=== PATIENT | female | born 1965 | race Caucasian/White ===

== ENCOUNTER → 2019-11-12 | Day surgery (SDC) | payer MEDICARE ==
[2019-11-12 08:46] VITALS: RESP 16
[2019-11-12 10:18] VITALS: BP 119/81; PULSE 78; TEMP 97.7
--- NOTE | 2019-11-12 11:12 | USB ---
EXAMINATION TYPE: US biopsy breast VAD LT DATE OF EXAM: 11/12/2019 CLINICAL HISTORY: N60.92 Left breast nodule. TECHNIQUE: Ultrasound guided core biopsy of left breast. COMPARISON: Outside left breast ultrasound dated 09/24/2019 FINDINGS: The procedure of ultrasound guided core biopsy was explained to the patient. Benefits, alt ernatives, and risks were discussed. An informed consent was then obtained. Preprocedural timeout w as performed. The patient was placed in supine positioning for imaging and for the procedure. The overlying skin w as prepped and draped in usual sterile fashion. 10 cc of 1% lidocaine was used as anesthetic into the skin and subcutaneous tissue up to a 0.9 cm mass at the 4:00 position in the left breast. Under ultrasound guidance, a 12-gauge vacuum assisted biopsy gun device was used to obtain 5 [address]es. Following this, a coil-shaped biopsy marker was left in the mass. Postprocedure mammogram was not performed secondary to the COVID pandemic. This was discussed with the patient. If positive path ology, left breast diagnostic mammogram would be necessary prior to surgical intervention and needle localization. The patient tolerated the procedure well without any immediate complication. The patient was kept in the radiology department for short stay after the procedure and then discharged home in stable condi tion. IMPRESSION: 1. Successful, uncomplicated ultrasound guided core biopsy of a 0.9 cm mass at the 4:00 position in t he left breast, full pathology results to follow. 2. On the outside provided imaging 2 additional left breast masses were discussed as BI-RADS 3, proba ble fibroadenomas and six-month follow-up left breast ultrasound is again recommended pending patholo gi results of the performed biopsy.
== END ==
LOC: RADUSWWP 08:20
PROVIDERS: ATTEND Obstetrics & Gynecology Obstetrics
DX: D24.2 Benign neoplasm of left breast (principal)
CPT/HCPCS: 19083; A4648; J2001; 88305

== ENCOUNTER 2021-05-21 12:50 | Day surgery (SDC) | payer MEDICARE ==
[2021-05-18 13:06] VITALS: BMI 29.5
[~2021-05-21 12:50] MED LIST: DEXAMETHASONE SOD PHOSPHATE 4 MG/ML 1 ML VIAL IV ONE; HYDROmorphone 0.5 MG/0.5 ML SYRINGE IVP PRN; LACTATED RINGERS 1,000 ML IV SCH; LIDOCAINE 1% (10MG/ML) FOR IV START INTRADERMA PRN; ONDANSETRON 4 MG/2 ML VIAL IVP ONE; SCOPOLAMINE 1.5MG/72HR PATCH TRANSDERM ONE
--- NOTE | 2021-05-21 13:33 | XR ---
EXAMINATION TYPE: XR KUB DATE OF EXAM: 05/21/2021 COMPARISON: None INDICATION: Kidney stones TECHNIQUE: Single view abdomen supine view FINDINGS: There is a normal bowel gas pattern. Fecal debris is through the colon Psoas margins are normal. No organomegaly is present. 0.4 cm calcification overlying the left L3 transverse process. Suspicious calcifications are otherwis e evident. IMPRESSION: 1. There may be a left proximal ureteral stone. Correlate with the patient's symptoms
--- NOTE | 2021-05-21 13:39 | P.HPIHPCON ---
History of Present Illness Chief Complaint: Left-sided ureteral stone This is a 56-year-old female with history of a 6 mm left-sided proximal ureteral stone, she symptomatic from her stone. Discussed with her the option of ESWL versus ureteroscopy. Discussed the risk and the benefit of each approach. She agreed to proceed with left-sided ureteroscopy with holmium laser. Discussed the risk which includes but not limited to bleeding, infection, injury to the ureter. She understood all the risk and agreed to proceed Consent for Procedure: I have explained the operation/procedure to the patient, including the risks, benefits, side effects, alternative therapies (including not receiving the proposed treatment or service), the likelihood of the patient achieving his/her goals, and potential recuperation problems for the procedure/sedation/analgesia, as well as any blood products, if indicated. I also explained to the patient the risks, benefits and side effects of the alternatives, as well as the risks related to not receiving the proposed procedure, care, treatment, or services. Past Medical History Past Medical History: Hypertension Additional Past Medical History / Comment(s): KIDNEY STONES History of Any Multi-Drug Resistant Organisms: None Reported Past Surgical History: Appendectomy, Back Surgery, Breast Surgery, Hysterectomy, Tonsillectomy Additional Past Surgical History / Comment(s): right breast excisional bx., left breast needle bx. Past Anesthesia/Blood Transfusion Reactions: No Reported Reaction Past Psychological History: No Psychological Hx Reported Smoking Status: Never smoker Past Alcohol Use History: None Reported Past Drug Use History: None Reported - Past Family History Mother Family Medical History: Deep Vein Thrombosis (DVT) Medications and Allergies Home Medications Medication Instructions Recorded Confirmed Type Ascorbic Acid [Vitamin C] 1,000 mg PO DAILY 10/30/19 05/18/21 History Celecoxib [CeleBREX] 200 mg PO DAILY 10/30/19 05/18/21 History DULoxetine HCL [Cymbalta] 60 mg PO BID 10/30/19 05/18/21 History Gabapentin 800 mg PO QID 10/30/19 05/18/21 History Multivitamins, Thera [Multivitamin 1 tab PO DAILY 10/30/19 05/18/21 History (formulary)] Cholecalciferol [Vitamin D3 (25 25 mcg PO DAILY 05/18/21 05/18/21 History Mcg = 1000 Iu)] Metoprolol Succinate (ER) [Toprol 25 mg PO DAILY 05/18/21 05/18/21 History Xl] Tamsulosin [Flomax] 0.4 mg PO HS 05/18/21 05/18/21 History Allergies Allergy/AdvReac Type Severity Reaction Status Date / Time No Known Allergies Allergy Verified 05/18/21 12:55 Surgical - Exam Vital Signs Temp Pulse Resp BP Pulse Ox 98 F 81 20 160/74 99 05/21/21 13:26 05/21/21 13:26 05/21/21 13:26 05/21/21 13:26 05/21/21 13:26 - General no distress, no pain - Eyes PERRL, normal ocular movement - ENT normal nares, normal mucosa - Respiratory normal expansion, normal respiratory effort - Abdomen Abdomen: soft, non tender Assessment and Plan Assessment: 56-year-old female history of left-sided ureteral stone -Or for left-sided ureteroscopy, with holmium laser lithotripsy, stone basketing and stent insertion
[2021-05-21] MEDS ORDERED: MIDAZOLAM 2 MG/2 ML VIAL IV ONE (14:07)
[2021-05-21] MEDS ORDERED: LIDOCAINE 1% INJ 10MG/ML (20 ML MDV) ONE (15:00)
[2021-05-21] MEDS ORDERED: MIDAZOLAM 2 MG/2 ML VIAL ONE (15:00)
[2021-05-21] MEDS ORDERED: fentaNYL (PF) 50 MCG/ML 2 ML AMP ONE (15:00)
[2021-05-21] MEDS ORDERED: KETOROLAC 15 MG/ML 1 ML VIAL ONE (15:00)
[2021-05-21] MEDS ORDERED: PROPOFOL 10 MG/ML 20 ML VIAL IV ONE (15:00)
[2021-05-21] MEDS ORDERED: IOPAMIDOL-370 50ML BTL IRRIGATION ONE (15:27)
[2021-05-21 15:59] VITALS: TEMP 96.9
--- NOTE | 2021-05-21 15:59 | FL ---
Fluoroscopy INDICATION: Pain, retrograde urogram FINDINGS: Fluoroscopy time: 17 seconds. Images obtained: 1. IMPRESSIONS: 1. Documentation of fluoroscopy.
[2021-05-21 16:03] VITALS: RESP 16
--- NOTE | 2021-05-21 16:11 | P.OP ---
Date of Procedure: 05/21/21 Preoperative Diagnosis: Left ureteral stone Postoperative Diagnosis: Same Procedure(s) Performed: Cystoscopy, left retrograde pyelogram, ureteroscopy, holmium laser lithotripsy, stone basketing Implants: None Anesthesia: JUANPABLOA Surgeon: Spenser Castillo Estimated Blood Loss (ml): 1 Pathology: other (left ureteral stone) Condition: stable Disposition: PACU Indications for Procedure: This is a 56-year-old female with history of a 6 mm left-sided proximal ureteral stone, she symptomatic from her stone. Discussed with her the option of ESWL versus ureteroscopy. Discussed the risk and the benefit of each approach. She agreed to proceed with left-sided ureteroscopy with holmium laser. Discussed the risk which includes but not limited to bleeding, infection, injury to the ureter. She understood all the risk and agreed to proceed Operative Findings: Left-sided proximal ureteral stone Description of Procedure: Patient was brought to the operating room, general anesthesia was induced. She was prepped and draped in sterile fashion and placed in dorsal lithotomy position. Cystoscopy fitted with a 21-[place] sheath was inserted per urethra, cystoscopy was performed which showed no abnormality within the bladder. Attention was then carried to the left ureteral orifice which was intubated with an open-ended catheter. Retrograde pyelogram was performed which showed a filling defect in the proximal ureter with mild hydronephrosis. A sensor wire was advanced through the catheter and the catheter was removed with the wire in place. Next an 1113 [place] access sheath was passed over the wire under fluoroscopy to the proximal ureter, distal to the stone. Next the flexible ureteroscope was inserted through the access sheath. Using the holmium laser the stone was fragmented into small fragments, sizable fragments were removed using the stone basket. At this time the ureteroscope was advanced to the kidney, complete renoscopy was performed which showed no additional fragments or any other renal stones. Pullback ureteroscopy was performed which showed no injury to the kidney or injury to the ureter. There was no sizable fragments. There was no ureteral edema, thus a stent was not placed. The bladder was emptied at the end of the case. Patient tolerated the procedure well was taken to recovery in stable condition
[2021-05-21] MEDS ORDERED: HYDROcodone/APAP 5-325MG 1 EACH TAB ONE (17:31)
[2021-05-21] MEDS ORDERED: HYDROcodone/APAP 5-325MG 1 EACH TAB PO ONE (17:35)
[2021-05-21 18:13] VITALS: BP 179/86; PULSE 71
== END 2021-05-21 18:43 | disposition home or self-care (01) ==
LOC: OR 12:50
PROVIDERS: ATTEND Urology
DX: N20.2 Calculus of kidney with calculus of ureter (principal); Z87.442 Personal history of urinary calculi
CPT/HCPCS: 52353; 82365; 74420; 74018; C1758; C1769; J2250; J1100; J0690; J2405; J2001; J3010; J1885; J2704; J1170; Q9967